=== PATIENT | female | born 1950 | race Two or more races ===

== ENCOUNTER 2018-07-16 07:02 | Day surgery (SDC) | payer OTHER ==
[~2018-07-16 07:02] MED LIST: ATORVASTATIN CA20 MG PO; COZAAR25 MG PO; FAMOTIDINE20 MG PO; INTEGRA F CAPS1 EACH PO; INTESTINEX680 MG PO; METFORMIN HCL500 MG PO; Neurin-Sl Tablet Sl SL; OMEPRAZOLE20 MG PO; PYRIDOXINE HCL100 M1 PO
== END 2018-07-16 11:57 | disposition home or self-care (01) ==
LOC: AMB-ENDOS 07:02
DX: K57.30 Diverticulosis of large intestine without perforation or abscess without bleeding (principal)